=== PATIENT | male | born 1980 | race Caucasian/White ===

== ENCOUNTER → 2024-01-07 12:27 | Outpatient (REF) | payer BC, SELFPAY | LOC: HWRAD 12:27 | PROVIDERS: ATTENDING PHYSICIAN Orthopaedic Surgery | DX: Q74.1 Congenital malformation of knee (principal) | CPT/HCPCS: 73560 ==

== ENCOUNTER → 2024-10-30 07:35 | Outpatient (REF) | payer BC, SELFPAY | LOC: RAD 07:35 | PROVIDERS: ATTENDING PHYSICIAN Family Medicine; FAMILY PHYSICIAN Family Medicine | DX: R10.10 Upper abdominal pain, unspecified (principal) | CPT/HCPCS: 74160; Q9967 ==

== ENCOUNTER 2024-11-25 14:48 | Emergency (ER) | payer BC, SELFPAY ==
[2024-11-25 14:51] VITALS: BP 138/90
[2024-11-25 15:12] LABS: Urine Albumin Negative (Neg - Trace); Urine Bilirubin Negative (Negative); Urine Character Clear (Clear); Urine Color Yellow; Urine Glucose Negative (Negative); Urine Ketone Negative (Negative); Urine Leukocyte Negative (Negative); Urine Nitrite Negative (Negative); Urine Occult Blood Negative (Negative); Urine Urobilinogen Negative (Neg - 1+); Urine pH 6.5 (5.0-9.0)
--- NOTE | 2024-11-25 17:23 | ED.GENMED ---
History of Present Illness
General
Chief Complaint: Male Genito-Urinary Symptoms
Time Seen by Provider: 11/25/24 17:00
History of Present Illness
History of Present Illness:
44-year-old male presents the emergency department for evaluation of right-sided inguinal and testicular pain for the past 3 weeks. Pain seems worse with straining or bearing down. No dysuria, urgency, nocturia, or penile discharge. No scrotal
swelling or injuries reported. No weight gain, weight loss, or night sweats
Past History
Past History
ED Past Medical History: GERD
ED Past Surgical History: Orthopedic
Social History
Tobacco: Former smoker (Smoked for a year)
Alcohol: Occasional
Drug: None
Personal:
Living: with family
Employment: Employed
Review of Systems
Review of Systems
Allergies reviewed?: Yes
All Other Systems: ROS reviewed and negative except as documented in HPI and ROS
Phy Exam
Physical Exam
Physical Exam:
GEN: Well appearing, NAD, WDWN
HEENT: Oral mucosa moist, no scleral icterus
Cardiac: Regular rate
Lung: No respiratory distress, no tachypnea
Abdomen: No lower abdominal tenderness
: No tenderness to palpation of the right scrotum and testicles, no palpable epididymal swelling, normal exam, no inguinal hernia, no inguinal adenopathy
MSK: No gross deformity or injuries
Skin: Good color, no pallor or jaundice, no rashes
Neuro: AO x3, moves all extremities freely
Psych: Calm, cooperative
Course
Orders/Labs/Results
Orders:
Orders
11/25/24 14:55
US Scrotum Urgent
Comment:
Reason For Exam: pain
11/25/24 15:01
Urinalysis Reflex To Culture Urgent
Date Specimen was Collected: 11/25/24
Time Specimen was Collected: 14:56
Vital Signs
Initial and Last Documented VS:
Initial Vital Signs
Temp Pulse Resp BP Pulse Ox
98.4 F 118 16 138/90 100
11/25/24 14:51 11/25/24 14:51 11/25/24 14:51 11/25/24 14:51 11/25/24 14:51
Last Documented Vital Signs
Temp Pulse Resp BP Pulse Ox
98.4 F 118 16 138/90 100
11/25/24 14:51 11/25/24 14:51 11/25/24 14:51 11/25/24 14:51 11/25/24 14:51
MDM/Problems Addressed
MDM/Problems Addressed:
Unclear etiology to symptoms, he may be musculoskeletal, urinalysis bland ruling out infection. Recommend outpatient urology and primary care follow-up
*Critical Care Note
Total Time (30-74mins, 75-104mins- exclusive of procedures): Not Applicable
ED Attending Note
-
Portions of this chart may have been created with voice recognition software.� Occasional wrong word or��sound alike� substitutions may have occurred due to the inherent limitations of voice recognition software.
Discharge Plan
Departure
Patient Disposition: Home (Routine Discharge)
Date of Disposition: 11/25/24
Time of Disposition: 18:06
Patient with high blood pressure during this ER visit?: No
Discharge Problem:
Pain in right testicle
Instructions: Hydrocele/Varicocele (DC)
Prescriptions:
No Action
omeprazole 40 MG capsule,delayed release(DR/EC)
40 mg PO DAILY
naproxen sodium [Aleve] 220 mg Capsule
440 mg PO Q4HPRN PRN (Reason: mild pain)
polyethylene glycol 3350 [Miralax] 17 gram/dose powder
4 g PO DAILY PRN (Reason: Constipation) Qty: 119 0RF
Rx Instructions:
start a laxative such as MIRALAX on day 2 after surgery if no bowel movement yet as long as no nausea/vomiting and passing gas
acetaminophen [Tylenol Extra Strength] 500 mg tablet
1,000 mg PO Q6HPRN PRN (Reason: mild pain) Qty: 1 0RF
oxycodone 5 mg tablet
5 mg PO Q4HPRN PRN (Reason: breakthrough/severe pain) Qty: 10 0RF
Activity Restrictions/Additional Instructions:
Your ultrasound does note a small hydrocele on both sides however this is not likely the cause of your pain. At this time your ultrasound and urinalysis are otherwise unremarkable. I recommend follow-up with urology to determine any other
potential causes
Interventions
Interventions:
*Risk Screen - Suicide Last Done: 11/25/24 14:51
*General Assessment Last Done: 11/25/24 14:51
*Neglect/Abuse Screening Last Done: 11/25/24 14:51
*ED COVID-19 Vaccine History Last Done: 11/25/24 14:51
*Nursing Disposition Last Done: 11/25/24 18:18
ED-Male Genitourinary Assessment Last Done: 11/25/24 17:09
Discharge Date and Time
Discharge Date/Time: 11/25/24 18:18
Print Language: MALTESE
== END 2024-11-25 18:18 | disposition home or self-care (01) ==
LOC: EMR 14:48
PROVIDERS: EMERGENCY PHYSICIAN Emergency Medicine
DX: N50.811 Right testicular pain (principal); K21.9 Gastro-esophageal reflux disease without esophagitis; Z87.891 Personal history of nicotine dependence
CPT/HCPCS: 99284; 76870; 81003; 93976